=== PATIENT | male | born 1940 | race Caucasian/White ===

== ENCOUNTER 2018-06-21 06:40 | Inpatient (IN) ==
[2018-06-21] MEDS ORDERED: NITROGLYCERIN 2% OINT 1 INCH/GM PACK TOP STA (06:58)
[2018-06-21] MEDS ORDERED: NITROGLYCERIN SL 0.4 MG TABLET SL PRN ×2 (06:58→12:17)
[2018-06-21] MEDS ORDERED: ASPIRIN 325 MG TABLET PO STA (06:58)
[2018-06-21] MEDS ORDERED: MORPHINE 4 MG/1 ML VIAL IV STA (07:17)
[2018-06-21 07:23] LABS: Basophils # 0.1 10*3/uL (0.0-0.2); Basophils % 1.1 % (0.0-0.8); Eosinophils # 0.4 10*3/uL (0.0-0.87); Eosinophils % 6.2 % (0.00-10.9); Hematocrit 45.6 VOL% (42.0-52.0); Hemoglobin 15.1 GM/DL (14.0-18.0); Immature Granulocytes % 0.2 %; Immature Granulocytes Absolute 0.01 #; Lymphocytes % 35.6 % (21.2-54.2); Mean Corpuscular HGB Conc 33.1 GM/DL (32-36); Mean Corpuscular Hemoglobin 31 PG (27-34); Mean Corpuscular Volume 94.6 FL (87-102); Mean Platelet Volume 9.8 FL (9.6-12.0); Monocytes # 0.6 10*3/uL (0.11-0.8); Monocytes % 10.7 % (1.7-12.7); Neutrophils # 2.6 10*3/uL (1.4-7.4); Neutrophils % 46.2 % (38.7-73.9); Platelet Count 176 T/CUMM (130-400); Red Blood Count 4.82 MC/CUMM (3.8-5.5); Red Cell Distribution Width 12.6 % (9.3-17.3); White Blood Count 5.7 T/CUMM (4-12)
[2018-06-21] MEDS ORDERED: HEPARIN 5,000 UNIT/1 ML VIAL IV STA (07:23)
[2018-06-21] MEDS ORDERED: HEPARIN DRIP 25,000 UNITS/500 ML PREMIX IV SCH (07:30)
[2018-06-21] MEDS ORDERED: MORPHINE 4 MG/1 ML VIAL IV PRN (07:37)
[2018-06-21] MEDS ORDERED: ZALEPLON 5 MG CAPSULE PO PRN (07:37)
[2018-06-21] MEDS ORDERED: POTASSIUM CHLORIDE 20 MEQ TABLET PO PRN (07:37)
[2018-06-21] MEDS ORDERED: MAGNESIUM SULF RIDER 2 GM in PREMIX 1 EACH IV PRN ×2 (07:37→08:25)
[2018-06-21] MEDS ORDERED: MAGNESIUM SULF RIDER 4 GM in PREMIX 1 EACH IV PRN (07:37)
[2018-06-21 07:39] LABS: Osmolality,Calculated 277.7 MOS/KG (273-304); Potassium 4.5 MMOL/L (3.5-5.1)
[2018-06-21] MEDS ORDERED: POTASSIUM CHLORIDE RIDER 10 MEQ in PREMIX 1 EACH IV PRN (08:25)
[2018-06-21] MEDS ORDERED: PANTOPRAZOLE 40 MG TABLET PO SCH (09:00)
[2018-06-21] MEDS: NITROGLYCERIN 2% OINT 1 INCH/GM PACK TOP SCH ×2 (10:58→22:50)
[2018-06-21] MEDS: SODIUM CHLORIDE 0.45% 1,000 ML IV SCH ×2 (10:59→21:52)
[2018-06-21] MEDS ORDERED: DIAZEPAM 5 MG TABLET PO ONE (11:00)
[2018-06-21] MEDS ORDERED: diphenhydrAMINE CAP 25 MG CAPSULE PO ONE (11:00)
[2018-06-21] MEDS ORDERED: LIDOCAINE 1% 20 ML VIAL ONE (12:10)
[2018-06-21] MEDS ORDERED: MIDAZOLAM 2 MG/2 ML VIAL ONE (12:10)
[2018-06-21] MEDS ORDERED: fentaNYL 100 MCG/2 ML VIAL ONE (12:10)
[2018-06-21] MEDS ORDERED: TIROFIBAN 5,000 MCG/100 ML PREMIX IV ONE (13:14)
[2018-06-21] MEDS ORDERED: HEPARIN 5,000 UNIT/1 ML VIAL ONE (13:16)
[2018-06-21] MEDS ORDERED: TIROFIBAN 5,000 MCG/100 ML PREMIX IV SCH (13:21)
[2018-06-21] MEDS ORDERED: HYDROmorphone 2 MG/1 ML VIAL ONE (14:03)
[2018-06-21] MEDS ORDERED: TICAGRELOR 90 MG TABLET ONE (14:13)
[2018-06-21] MEDS: CARVEDILOL 3.125 MG TABLET PO SCH ×2 (14:37→21:59)
[2018-06-21] MEDS: GABAPENTIN 100 MG CAPSULE PO SCH ×2 (15:48→22:49)
[2018-06-21] MEDS: ACETAMINOPHEN 325 MG TABLET PO SCH ×2 (15:48→22:49)
[2018-06-21] MEDS: traMADol 50 MG TABLET PO SCH ×2 (15:49→21:57)
[2018-06-21 18:58] LABS: CKMB % 14.7 %
[2018-06-21 18:59] LABS: Troponin I 11.3 NG/ML (0.00-0.045)
[2018-06-21] MEDS ORDERED: ASPIRIN EC 325 MG TABLET PO SCH (21:00)
[2018-06-21] MEDS: OMEGA 3 ACID ETHYL ESTERS 1 GM CAPSULE PO SCH (21:56)
[2018-06-21] MEDS: TICAGRELOR 90 MG TABLET PO SCH (21:59)
[2018-06-22 02:25] LABS: Basophils % 0.3 % (0.0-0.8); Eosinophils # 0.2 10*3/uL (0.0-0.87); Eosinophils % 2.1 % (0.00-10.9); Hematocrit 41.7 VOL% (42.0-52.0); Hemoglobin 13.8 GM/DL (14.0-18.0); Immature Granulocytes % 0.2 %; Immature Granulocytes Absolute 0.02 #; Lymphocytes # 1.6 10*3/uL (1.4-4.0); Lymphocytes % 17.9 % (21.2-54.2); Mean Corpuscular HGB Conc 33.1 GM/DL (32-36); Mean Corpuscular Hemoglobin 31 PG (27-34); Mean Corpuscular Volume 93.9 FL (87-102); Mean Platelet Volume 9.7 FL (9.6-12.0); Monocytes # 0.9 10*3/uL (0.11-0.8); Monocytes % 10.1 % (1.7-12.7); Neutrophils # 6.3 10*3/uL (1.4-7.4); Neutrophils % 69.4 % (38.7-73.9); Platelet Count 161 T/CUMM (130-400); Red Blood Count 4.44 MC/CUMM (3.8-5.5); Red Cell Distribution Width 12.6 % (9.3-17.3); White Blood Count 9.1 T/CUMM (4-12)
[2018-06-22 02:46] LABS: Calcium 8.4 MG/DL (8.5-10.1); Potassium 3.9 MMOL/L (3.5-5.1)
[2018-06-22 03:01] LABS: CKMB % 12.8 %
[2018-06-22 03:03] LABS: Troponin I 60.1 NG/ML (0.00-0.045)
[2018-06-22] MEDS: ASPIRIN CHEW 81 MG TABLET PO SCH (08:15)
[2018-06-22] MEDS: GABAPENTIN 100 MG CAPSULE PO SCH ×3 (08:15→23:18)
[2018-06-22] MEDS: TICAGRELOR 90 MG TABLET PO SCH ×2 (08:15→21:24)
[2018-06-22] MEDS: PANTOPRAZOLE 40 MG TABLET PO SCH (08:16)
[2018-06-22] MEDS: ACETAMINOPHEN 325 MG TABLET PO SCH ×2 (08:16→21:28)
[2018-06-22] MEDS: CARVEDILOL 3.125 MG TABLET PO SCH ×2 (08:16→23:17)
[2018-06-22] MEDS: traMADol 50 MG TABLET PO SCH (08:16)
[2018-06-22] MEDS: NITROGLYCERIN 2% OINT 1 INCH/GM PACK TOP SCH ×2 (08:16→23:18)
[2018-06-22 10:44] LABS: CKMB % 9.4 %
[2018-06-22 10:46] LABS: Troponin I 44.6 NG/ML (0.00-0.045)
[2018-06-22] MEDS ORDERED: ALBUTEROL/IPRATROPIUM 3 ML NEB RESP TX ONE (12:13)
[2018-06-22] MEDS: FUROSEMIDE 40 MG/4 ML VIAL IV SCH (12:39)
[2018-06-22] MEDS: ASCORBIC ACID 500 MG TABLET PO SCH ×2 (12:39→21:26)
[2018-06-22] MEDS: POTASSIUM CHLORIDE 20 MEQ TABLET PO SCH ×2 (12:39→21:26)
[2018-06-22] MEDS: ALBUTEROL/IPRATROPIUM 3 ML NEB RESP TX SCH ×2 (13:46→19:25)
[2018-06-22] MEDS ORDERED: ROSUVASTATIN 20 MG TABLET PO SCH (21:00)
[2018-06-22] MEDS: OMEGA 3 ACID ETHYL ESTERS 1 GM CAPSULE PO SCH (23:19)
[2018-06-23] MEDS: ALBUTEROL/IPRATROPIUM 3 ML NEB RESP TX SCH ×2 (01:25→07:53)
[2018-06-23 04:43] LABS: Calcium 8.8 MG/DL (8.5-10.1); Osmolality,Calculated 274.8 MOS/KG (273-304); Potassium 4.1 MMOL/L (3.5-5.1)
[2018-06-23] MEDS: POTASSIUM CHLORIDE 20 MEQ TABLET PO SCH (08:40)
[2018-06-23] MEDS: ASPIRIN CHEW 81 MG TABLET PO SCH (08:40)
[2018-06-23] MEDS: ASCORBIC ACID 500 MG TABLET PO SCH (08:40)
[2018-06-23] MEDS: GABAPENTIN 100 MG CAPSULE PO SCH (08:40)
[2018-06-23] MEDS: CARVEDILOL 3.125 MG TABLET PO SCH (08:40)
[2018-06-23] MEDS: TICAGRELOR 90 MG TABLET PO SCH (08:41)
[2018-06-23] MEDS: FUROSEMIDE 40 MG/4 ML VIAL IV SCH (08:41)
[2018-06-23] MEDS: NITROGLYCERIN 2% OINT 1 INCH/GM PACK TOP SCH (08:41)
[2018-06-23] MEDS: ACETAMINOPHEN 325 MG TABLET PO SCH (08:41)
[2018-06-23] MEDS: PANTOPRAZOLE 40 MG TABLET PO SCH (08:41)
[2018-06-23 12:52] VITALS: BP 118/69
== END 2018-06-23 13:15 | disposition home or self-care (01) | DRG 247 ==
LOC: N.ED 06:40 → N.EDINP 07:37 → N.TELES 08:16
PROVIDERS: ADMIT Internal Medicine Cardiovascular Disease; ATTEND Internal Medicine Cardiovascular Disease